=== PATIENT | female | born 1985 | race Caucasian/White ===

== ENCOUNTER 2016-10-19 21:02 | Emergency (ER) | payer MEDICAID, OTHER ==
[2016-10-19] MEDS ORDERED: LACTATED RINGER'S 1000 ML INJ 1,000 ML IV SCH (21:55)
--- NOTE | 2016-10-19 22:15 | PD ---
HPI Chief Complaint Contractions Date Seen: Oct 19, 2016 Time Seen: 22:06 Travel History International Travel<30 Days: No Contact w/Intl Traveler<30Days: No Known Affected Area: No History of Present Illness HPI 31-year-old 3 para 2 at 35 weeks gestation with an EDC of 11/25/16 who reports contractions since just afternoon. She states that they are occurring every 2-10 minutes. She denies leakage of fluid. No unusual vaginal discharge or bleeding. 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 Appearance is incompetent. By first and second trimester bleeding secondary to low-lying placenta. Her most recent ultrasound demonstrated 1/2 cm of distance between the cervix and the placenta by the patient's report. This study was performed at [facility]. She states that she received RhoGAM in the first trimester but did not receive her 28 week RhoGAM. Past Surgical History Narrative Surgical Tonsillectomy Family History Family History: Negative Social History Alcohol Use: No Tobacco Use: No Substance Abuse: No Allergies-Medications (Allergen,Severity, Reaction): Coded Allergies: Phenergan (Verified Allergy, Unknown, 04/10/16) Home Meds No Active Prescriptions or Reported Meds Review of Systems Except as stated in HPI: all other systems reviewed are Neg Physical Exam Narrative GENERAL: Well-nourished, well-developed patient. SKIN: Warm and dry. HEAD: Normocephalic and atraumatic. EYES: No scleral icterus. No injection or drainage. ENT: No nasal drainage noted. Mucous membranes pink. Airway patent. NECK: Supple, trachea midline. No JVD. CARDIOVASCULAR: Regular rate and rhythm without murmurs, gallops, or rubs. RESPIRATORY: Breath sounds equal bilaterally. No accessory muscle use. ABDOMEN/GI: Abdomen soft, non-tender, bowel sounds present, no rebound, no guarding Gravid to [-] weeks size Fundal Height: [-35] GENITOURINARY: External Genitalia: intact and normal in appearance BUS glands: [Negative-] Cervix: [-] Dilatation: [2-] Effacement: [-50] Station: [-2-] Presentation: [-Vertex] Membranes: [intact] Uterine Contractions: [Every 3-] FHT's: Category: [-1] Baseline: [-] Reactive: [-] Variability: [-] Decels: [-] EXTREMITIES: No cyanosis or edema. BACK: Nontender without obvious deformity. No CVA tenderness. NEUROLOGICAL: Awake and alert. Motor and sensory grossly within normal limits. Five out of 5 muscle strength in all muscle groups. Normal speech. Data Data Vital Signs Reviewed: Yes Orders Vital Signs (Adult) .ON ADMISSION (10/19/16 21:55) ^ Labor Status (10/19/16 21:55) Urinalysis - C+S If Indicated (10/19/16 21:55) Type And Screen (10/19/16 21:55) Wet Prep Profile (10/19/16 21:55) Group B Beta Strep Scrn (Gbs) (10/19/16 21:55) Lactated Ringer's 1000 Ml Inj (Lr 1000 M (10/19/16 21:55) MDM Medical Record Reviewed: Yes Narrative Course / MDM Multipara at 35 weeks gestation with contractions and cervical dilation to 2 cm , #2 Rh- and overdue for RhoGAM Plan: IV hydration, wet prep, urinalysis, group B strep, GC and chlamydia screening Type and screen and rhogam if AST is negative Addendum: UA and wet prep are negative Rogam will be administered. Diagnosis Diagnosis: Primary Impression: 35 weeks gestation of Additional Impressions: Rh negative status during in third trimester Irregular contractions Disposition: 01 DISCHARGE HOME Condition: Good Scripts No Active Prescriptions or Reported Meds Marshall Linton MD Oct 19, 2016 22:14
[2016-10-19 22:30] LABS: BACTERIA, URINE RARE /hpf; BLOOD, URINE NEG (NEG); COMMENT (UR) CULT NOT INDICATED; CULTURE IF INDICATED CULT NOT INDICATED; GLUCOSE,URINE NEG (NEG); HYALINE CAST, URINE 1 /lpf (RARE); KETONE, URINE NEG (NEG); MUCUS URINE FEW /lpf (OCC); NITRITE,URINE NEG (NEG); SQUAMOUS EPITHELIAL CELL URINE 2 /hpf (0-5); URINE COLOR YELLOW (YELLW/STRAW)
[2016-11-10] MEDS ORDERED: FERR200T PO (09:04)
[2016-12-24] MEDS ORDERED: CLIN1CAP5 PO (11:11)
[2016-12-30] MEDS ORDERED: ORTH0.35 PO (10:17)
== END 2016-10-20 01:52 | disposition home or self-care (01) ==
LOC: HOBED 21:02
DX: O62.2 Other uterine inertia (principal); O36.0930 Maternal care for other rhesus isoimmunization, third trimester, not applicable or unspecified; Z3A.35 35 weeks gestation of pregnancy
CPT/HCPCS: 59025; 81001; 84112; 85461; 86850; 86900; 86901; 87081; 87210; 90384; 96360; 96361; 96372; J2790

== ENCOUNTER 2016-11-02 10:03 | Emergency (ER) | payer OTHER ==
[2016-11-02 10:56] LABS: BLOOD, URINE NEG (NEG); GLUCOSE,URINE NEG (NEG); KETONE, URINE NEG (NEG); NITRITE,URINE NEG (NEG); PH, URINE 6.5 (5.0-8.5); URINE COLOR LIGHT-YELLOW (YELLW/STRAW)
--- NOTE | 2016-11-02 11:01 | PD ---
HPI Chief Complaint Vaginal spotting Date Seen: Nov 02, 2016 Time Seen: 10:20 Travel History International Travel<30 Days: No Contact w/Intl Traveler<30Days: No Known Affected Area: No History of Present Illness HPI 31-year-old 002 at 37 weeks of gestation, EDC 11/23/16, patient presents to OB ED with complaints of vaginal spotting, patient stated that she was wiping this morning and testosterone blood, she denies cramping, contractions, leakage of fluids and decreased movement. care is with the office of Sarah Merchant, course is unremarkable. Vaginal exam shows no bleeding, no blood is noted on the glove, cervix is 2-3, 50% effaced, -3, posterior. No contractions is seen on the monitor. Para: 2 : 3 Miscarriage: 0 : 0 History Past Medical History Narrative Medical Denies Medical History: Denies Significant Hx Obstetric History Obstetric History Spontaneous vaginal delivery 2 Past Surgical History Narrative Surgical Status post tonsillectomy Family History Narrative Family History Grandfather has prostate cancer, grandmother has breast cancer and cataracts Social History Alcohol Use: No Tobacco Use: Yes (patient smokes 2-3 cigarettes a day) Substance Abuse: No Allergies-Medications (Allergen,Severity, Reaction): Coded Allergies: Phenergan (Verified Allergy, Unknown, 11/02/16) Home Meds No Active Prescriptions or Reported Meds Review of Systems Except as stated in HPI: all other systems reviewed are Neg Genitourinary: Other (vaginal spotting) Physical Exam Narrative GENERAL: Well-nourished, well-developed patient. SKIN: Warm and dry. HEAD: Normocephalic and atraumatic. EYES: No scleral icterus. No injection or drainage. ENT: No nasal drainage noted. Mucous membranes pink. Airway patent. NECK: Supple, trachea midline. No JVD. CARDIOVASCULAR: Regular rate and rhythm without murmurs, gallops, or rubs. RESPIRATORY: Breath sounds equal bilaterally. No accessory muscle use. BREASTS: Bilateral exam showed no masses , no retractions, no nipple discharge. ABDOMEN/GI: Abdomen soft, gravid, non-tender, bowel sounds present, no rebound, no guarding Gravid to 37weeks size Fundal Height: 37 cm GENITOURINARY: External Genitalia: intact and normal in appearance BUS glands: Normal Cervix: 2-3 cm, 50%, -3, posterior Dilatation: 2-3 cm Effacement: 50% Station: -3 Presentation: Cephalic Membranes: Intact Uterine Contractions: None FHT's: Category: one Baseline: 140s Reactive: Yes Variability: Moderate Decels: None EXTREMITIES: No cyanosis or edema. BACK: Nontender without obvious deformity. No CVA tenderness. NEUROLOGICAL: Awake and alert. Motor and sensory grossly within normal limits. Five out of 5 muscle strength in all muscle groups. Normal speech. Data Data Vital Signs Reviewed: Yes Orders Vital Signs (Adult) .ON ADMISSION (11/02/16 10:33) ^ Labor Status (11/02/16 10:33) Urinalysis - C+S If Indicated (11/02/16 10:33) ^ Non Stress Test (11/02/16 10:33) ^ Hydration (11/02/16 10:33) MDM Medical Record Reviewed: Yes Diagnosis Diagnosis: Primary Impression: 37 weeks gestation of Additional Impression: False labor Disposition: 01 DISCHARGE HOME Condition: Stable Scripts No Active Prescriptions or Reported Meds Patient Instructions: Early Labor Signs (ED), General Instructions, Having Your Baby: The Labor Process (GEN) Additional Instructions: Return to labor and delivery if increased symptoms, cramping, contractions, leakage of fluids, vaginal bleeding or decreased movement. Drink plenty of fluids. Monitor kick counts. Keep your office appointment as scheduled. Bhargav Thakkar MD Nov 02, 2016 11:01
[2016-11-02 11:07] LABS: COMMENT (UR) CULT NOT INDICATED; CULTURE IF INDICATED CULT NOT INDICATED
[2016-11-10] MEDS ORDERED: FERR200T PO (09:04)
[2016-12-24] MEDS ORDERED: CLIN1CAP5 PO (11:11)
[2016-12-30] MEDS ORDERED: ORTH0.35 PO (10:17)
== END 2016-11-02 11:17 | disposition home or self-care (01) ==
LOC: HOBED 10:03
DX: O47.1 False labor at or after 37 completed weeks of gestation (principal); Z3A.37 37 weeks gestation of pregnancy; F17.210 Nicotine dependence, cigarettes, uncomplicated
CPT/HCPCS: 59025; 81001

== ENCOUNTER 2016-11-06 00:58 | Inpatient (IN) | payer OTHER ==
[2016-11-06] VITALS (63 sets, daily range): BP systolic 111–138; BP diastolic 63–82; PULSE 75–116; RESP 16–20; TEMP 97.8–98.2; O2SAT 100
--- NOTE | 2016-11-06 01:49 | PD ---
HPI Chief Complaint Vaginal bleeding. Date Seen: Nov 06, 2016 Travel History International Travel<30 Days: No Contact w/Intl Traveler<30Days: No History of Present Illness HPI Patient is a 31 year old at 37-4/7 weeks gestation with MARVIN 11/25/16 by LMP who presents today for vaginal bleeding. She states that she was trying to void when large clots started coming out and she started gushing blood. She soaked through half a pad prior to coming here. She is carrying a Ziploc baggie full of clots that she collected from the toilet bowl. Of note, US on was significant for low-lying placenta and cervical shortening. She endorses contractions but has not been monitoring their frequency. She denies any other vaginal discharge. She is unsure if her membranes ruptured. Positive movement. She denies any abdominal pain, fever, chills, nausea, vomiting, light-headedness, blurry vision, shortness of breath, chest pain, or headache. care was initially with Sarah Merchant and she recently transitioned care to [facility]. History Past Medical History Medical History: Denies Significant Hx Obstetric History Obstetric History s/p x 2 at term Past Surgical History Narrative Surgical Tonsillectomy Family History Narrative Family History Family history of unspecified cancer. Social History Alcohol Use: No Tobacco Use: Yes (2-3 cigarettes/day) Substance Abuse: No Allergies-Medications (Allergen,Severity, Reaction): Coded Allergies: Phenergan (Verified Allergy, Unknown, 11/04/16) Home Meds No Active Prescriptions or Reported Meds Review of Systems Except as stated in HPI: all other systems reviewed are Neg General / Constitutional: No: Fever, Chills Eyes: No: Blurred Vision HENT: No: Headaches, Lightheadedness Cardiovascular: No: Chest Pain or Discomfort Respiratory: No: Short of Breath Gastrointestinal: No: Nausea, Vomiting, Abdominal Pain Genitourinary: Pelvic Pain, Vaginal Bleeding, No: Dysuria, Discharge Musculoskeletal: Edema Skin: No Rash Psychiatric: No: Substance Abuse Physical Exam Narrative GENERAL: Well-nourished, well-developed patient. SKIN: Warm and dry. HEAD: Normocephalic and atraumatic. EYES: No scleral icterus. No injection or drainage. ENT: No nasal drainage noted. Mucous membranes pink. Airway patent. NECK: Supple, trachea midline. No JVD. CARDIOVASCULAR: Regular rate and rhythm without murmurs, gallops, or rubs. RESPIRATORY: Breath sounds equal bilaterally. No accessory muscle use. ABDOMEN/GI: Abdomen soft, mildly tender to palpation in LLQ, bowel sounds present, no rebound, no guarding Gravid to 37 weeks size GENITOURINARY: Speculum Exam: Pooling of dark blood and large clot in vaginal vault. No bright red bleeding at this time. External Genitalia: intact and normal in appearance BUS glands: wnl Cervix: posterior Dilatation: 2 Effacement: 50 Station: -3 Presentation: vertex Membranes: intact Uterine Contractions: irregular FHT's: Category: I Baseline: 130 Reactive: + Variability: moderate Decels: none EXTREMITIES: No cyanosis or edema. BACK: Nontender without obvious deformity. No CVA tenderness. NEUROLOGICAL: Awake and alert. Motor and sensory grossly within normal limits. Normal speech. Data Data Vital Signs Reviewed: Yes MDM Medical Record Reviewed: Yes Narrative Course / MDM Patient is a 31 year old at 37-4/7 weeks gestation. 1. IUP- Category I tracing, reassuring. Continue monitoring FHT/[place]. 2. Acute painless vaginal bleeding- Vitals are stable. Continue to monitor closely. Bedside US significant for vertex presentation, BPD 8.97 consistent with 36-2/7 weeks gestation. Placenta is located left, posterior, and low-lying placenta. Amniotic fluid pockets: 3.12, 7.60, 4.12, 2.79. MARCE 17.63. Flexion, tone, very active, breathing. Category I tracing. 1010 BPP. Plan: Type and Screen, coags, CBC, 2 units PRBC on hold, UDS, UA, CMP, ultrasound. LR @ 125ml/hr. 3. Rh negative- Obtain Kleihauer Betke. Last Rhogam administered 10/19/16. 4. GBS negative. 5. Dispo: Continue to monitor FHT, vitals and clinical symptoms closely. Currently stable, however low threshold for imminent delivery with if status changes. Patient to remain NPO. sdw Dr. Hopkins Addendum: Formal US significant for cervical length of 2.7cm, placenta located 3cm from internal os, internal os closed, no abruption. Scripts No Active Prescriptions or Reported Meds Sarahi Obrien MD R2 Nov 06, 2016 01:49
[2016-11-06] MEDS ORDERED: LACTATED RINGER'S 1000 ML INJ 1,000 ML IV SCH ×2 (01:51→11:51)
[2016-11-06 02:02] LABS: HEMATOCRIT 31.5 % (35.0-46.0); MEAN CELL VOLUME 84.9 FL (80.0-100.0); MEAN CORPUSCULAR HEMOGLOBIN 28.7 PG (27.0-34.0); MEAN CORPUSCULAR HGB CONC 33.8 % (32.0-36.0); PLATELET COUNT 187 TH/MM3 (150-450); RED BLOOD COUNT 3.71 MIL/MM3 (4.00-5.30); REVIEW FLAG FINAL
[2016-11-06] MEDS ORDERED: ACETAMINOPHEN 325 MG TAB PO PRN (02:15)
[2016-11-06] MEDS ORDERED: SODIUM CHLORIDE 0.9% FLUSH 5 ML FLUSH IVF PRN (02:15)
[2016-11-06] MEDS ORDERED: SODIUM CHLOR 0.9% 250 ML INJ 250 ML IV ONE (02:15)
[2016-11-06] MEDS ORDERED: ONDANSETRON HCL 4 MG/2 ML VIAL IV PRN ×2 (02:15→12:00)
[2016-11-06 02:41] LABS: BLOOD, URINE NEG (NEG); GLUCOSE,URINE NEG (NEG); KETONE, URINE NEG (NEG); MUCUS URINE FEW /lpf (OCC); NITRITE,URINE NEG (NEG); PH, URINE 6.5 (5.0-8.5); RENAL EPITHELIAL CELLS <1 /hpf; SQUAMOUS EPITHELIAL CELL URINE <1 /hpf (0-5); URINE COLOR LIGHT-YELLOW (YELLW/STRAW)
[2016-11-06 02:42] LABS: COMMENT (UR) CULT NOT INDICATED; CULTURE IF INDICATED CULT NOT INDICATED
[2016-11-06 02:45] LABS: AMPHETAMINE, URINE NEG (NEG); BARBITURATES, URINE NEG (NEG); COCAINE, URINE NEG (NEG)
[2016-11-06 03:50] LABS: APTT (PATIENT) 27.8 SEC (24.3-30.1); INTERNATIONAL NORMALIZED RATIO 0.9 RATIO; PROTHROMBIN TIME - PATIENT 10.2 SEC (9.8-11.6)
[2016-11-06 04:06] LABS: ALT (GPT) 18 U/L (10-53); ANION GAP 8 MEQ/L (5-15); AST (GOT) 15 U/L (15-37); BLOOD UREA NITROGEN 8 MG/DL (7-18); CHLORIDE 109 MEQ/L (98-107); GLOMERULAR FILTRATION RATE 175 ML/MIN (>89); POTASSIUM 3.9 MEQ/L (3.5-5.1); SODIUM (NA) 142 MEQ/L (136-145)
[2016-11-06 04:09] LABS: ALKALINE PHOSPHATASE 122 U/L (45-117); TOTAL BILIRUBIN ADULT 0.2 MG/DL (0.2-1.0)
[2016-11-06] MEDS ORDERED: SODIUM CHLORIDE 0.9% FLUSH 5 ML FLUSH IVF SCH (09:00)
[2016-11-06] MEDS ORDERED: MULTIVIT/MIN/PREN/FOL AC/IRON PRENATAL TAB PO SCH (09:00)
[2016-11-06] MEDS ORDERED: LACTATED RINGER'S 1000 ML INJ 1,000 ML IV PRN (11:51)
[2016-11-06] MEDS ORDERED: LIDOCAINE HCL 1% 50 ML VIAL I-DERMAL PRN (12:00)
[2016-11-06] MEDS ORDERED: CITRIC ACID-SODIUM CITRATE LIQ 30 ML UDC PO SCH (12:00)
[2016-11-06] MEDS ORDERED: SODIUM CHLORID 0.9% 500 ML INJ 500 ML IV PRN (12:00)
--- NOTE | 2016-11-06 12:04 | HHI.HP ---
History & Physical H&P HPI HPI Chief Complaint Vaginal bleeding. Date Seen: Nov 06, 2016 Travel History International Travel<30 Days: No Contact w/Intl Traveler<30Days: No History of Present Illness HPI Patient is a 31 year old at 37-4/7 weeks gestation with MARVIN 11/25/16 by LMP who presents today for vaginal bleeding. She states that she was trying to void when large clots started coming out and she started gushing blood. She soaked through half a pad prior to coming here. She is carrying a Ziploc baggie full of clots that she collected from the toilet bowl. Of note, US on was significant for low-lying placenta and cervical shortening. She endorses contractions but has not been monitoring their frequency. She denies any other vaginal discharge. She is unsure if her membranes ruptured. Positive movement. She denies any abdominal pain, fever, chills, nausea, vomiting, light-headedness, blurry vision, shortness of breath, chest pain, or headache. care was initially with Sarah Merchant and she recently transitioned care to [facility]. History (Limited) History Past Medical History Medical History: Denies Significant Hx Obstetric History Obstetric History s/p x 2 at term Past Surgical History Narrative Surgical Tonsillectomy Family History Narrative Family History Family history of unspecified cancer. Social History Alcohol Use: No Tobacco Use: Yes (2-3 cigarettes/day) Substance Abuse: No Allergies-Medications Allergies-Medications (Allergen,Severity, Reaction): Coded Allergies: Phenergan (Verified Allergy, Unknown, 11/04/16) Home Meds No Active Prescriptions or Reported Meds ROS Review of Systems Except as stated in HPI: all other systems reviewed are Neg General / Constitutional: No: Fever, Chills Eyes: No: Blurred Vision HENT: No: Headaches, Lightheadedness Cardiovascular: No: Chest Pain or Discomfort Respiratory: No: Short of Breath Gastrointestinal: No: Nausea, Vomiting, Abdominal Pain Genitourinary: Pelvic Pain, Vaginal Bleeding, No: Dysuria, Discharge Musculoskeletal: Edema Skin: No Rash Psychiatric: No: Substance Abuse Physical Exam Physical Exam Narrative GENERAL: Well-nourished, well-developed patient. SKIN: Warm and dry. HEAD: Normocephalic and atraumatic. EYES: No scleral icterus. No injection or drainage. ENT: No nasal drainage noted. Mucous membranes pink. Airway patent. NECK: Supple, trachea midline. No JVD. CARDIOVASCULAR: Regular rate and rhythm without murmurs, gallops, or rubs. RESPIRATORY: Breath sounds equal bilaterally. No accessory muscle use. ABDOMEN/GI: Abdomen soft, mildly tender to palpation in LLQ, bowel sounds present, no rebound, no guarding Gravid to 37 weeks size GENITOURINARY: Speculum Exam: Pooling of dark blood and large clot in vaginal vault. No bright red bleeding at this time. External Genitalia: intact and normal in appearance BUS glands: wnl Cervix: posterior Dilatation: 3 Effacement: 90 Station: -2 Presentation: vertex Membranes: intact Uterine Contractions: q4-6 minutes FHT's: Category: I Baseline: 130 Reactive: + Variability: moderate Decels: none EXTREMITIES: No cyanosis or edema. BACK: Nontender without obvious deformity. No CVA tenderness. NEUROLOGICAL: Awake and alert. Motor and sensory grossly within normal limits. Normal speech. Data Data Data Vital Signs Reviewed: Yes MDM MDM Medical Record Reviewed: Yes Narrative Course / MDM Patient is a 31 year old at 37-4/7 weeks gestation; concern for placental abruption. Re-evaluated at 1200, Now with regular contractions and cervical change. 1. IUP- Category I tracing, reassuring. Continue monitoring FHT/[place]. 2. Acute painless vaginal bleeding- Concern for component of placental abruption. Vitals are stable. Will proceed with labor augmentation with plan for vaginal delivery. Labs reviewed 3. Rh negative- Obtain Fly Prajapati. Rhogam administered 10/19/16 and 11/06/16 4. GBS negative. 5. Dispo: augment labor for expectant vaginal delivery Billy Estrella Dr., MD R2 Nov 06, 2016 12:04
[2016-11-06] MEDS ORDERED: SODIUM CHLOR 0.9% 1000 ML INJ 1,000 ML IV PRN (12:11)
--- NOTE | 2016-11-06 12:58 | PD ---
History of Present Illness Date Seen: Nov 06, 2016 Time Seen: 12:30 History of Present Illness This patient is a 31-year-old white female 30 7/2 weeks with third trimester bleeding. Ultrasound Ruled out placenta previa, she describes a gush of blood earlier this morning she brought into large clots to see that she's been here she's had a small clot when she got up to the bathroom and when I just checked and there was some red blood on the glove. She is cl every 4-5 minutes with some discomfort her cervix was 3/60 and -3 and vertex and at this point this much bleeding noted would describe it as marginal abruption, heart rate tracing is reactive and she is cl as mentioned. Impression is 30 trimester bleeding likely small abruption plan is for labor augmentation to facilitate delivery. This was discussed with patient at length she agrees and is happy with that decision. Bart Starr II, MD Nov 06, 2016 12:58
[2016-11-06] MEDS ORDERED: OXYTOCIN 30 UNITS-500ML PREMIX 500 ML ONE (15:14)
--- NOTE | 2016-11-06 15:33 | PD.LABORPN ---
Subjective Subjective Patient is doing well. Her children have arrived. She would like her two children, friend, and in room during delivery. is still on his way from [place]. Patient evaluated for AROM and IUPC placement. AROM @15:19 performed with blood- tinged fluid. IUPC inserted. Head of was not fully engaged at internal os- increased risk for potential cord prolapse or abruption- none at present. .No complaints at this time. Objective Vital Signs Vital Signs Date Time Temp Pulse Resp B/P Pulse Ox O2 Delivery O2 Flow Rate FiO2 11/06/16 14:24 100 20 120/72 11/06/16 14:20 98.2 Objective Pelvic Exam: Dilatation: [-] 3-4cm Effacement: [-] 50 Station: [-] -3 Presentation: [-] vertex Membranes: AROM @1519 Uterine Contractions: irregular, q2-8 minutes FHT's: Category: [-] 1 Baseline: [-] 145 Reactive: [-] Yes Variability: [-] Moderate Decels: [-] No Assessment/Plan Problem List: (1) Encounter for full-term uncomplicated delivery (2) 37 weeks gestation of (3) Rh negative status during in third trimester (4) Tobacco use during Assessment and Plan 31 year-old with known low-lying placenta 3cm from internal os at 37.4 in active labor. 1. Active Labor, 37 weeks gestation -Pt of Dr. Cleveland, call him when delivery is imminent to deliver -AROM and IUPC @3:19pm with blood tinged fluid, performed without complication. Patient tolerated procedure well -Cat 1 tracing -Expectant vaginal delivery -Epidural desired - Labs -Chlamydia/Gonorrhea neg (2/2) -GBS neg -UDS neg 2. Rh negative status during in 3rd trimester -Antibody D screen neg -Received RhoGAM (10/20, 2/2) 3. Tobacco Abuse during -"Less than pre-" SDW: Dr. Starr, Demetria Corea MD R1 Nov 06, 2016 15:33
[2016-11-06] MEDS ORDERED: OXYTOCIN 30 UNITS-500ML PREMIX 500 ML IV SCH (17:15)
[2016-11-06] MEDS ORDERED: fentaNYL 2MCG-BUPIV 0.125% INJ 100 ML ONE (19:42)
[2016-11-06] MEDS ORDERED: fentaNYL 2MCG-BUPIV 0.125% INJ 100 ML EPIDURAL SCH (21:00)
[2016-11-06] MEDS ORDERED: NO SYSTEM NARCOTICS XX PRN (21:00)
[2016-11-06] MEDS ORDERED: ePHEDrine/NS 50 MG/5 ML SYR IV PRN (21:00)
[2016-11-06] MEDS ORDERED: DO NOT ADMINISTER ANTICOAGULANTS XX PRN (21:00)
[2016-11-07] VITALS (10 sets, daily range): BP systolic 120–125; BP diastolic 66–73; PULSE 18–93; RESP 18; TEMP 98.5–99; O2SAT 98
[2016-11-07] MEDS ORDERED: MISOPROSTOL 200 MCG TAB ONE (00:04)
--- NOTE | 2016-11-07 00:12 | PD.OB.DELI ---
Delivery Date: Nov 07, 2016 Anesthesia: Epidural Episiotomy: None Vaginal Delivery: Normal Presentation: Occiput anterior Nuchal Cord: None Delayed cord clamping (45 sec): No : Male One Minute : 8 Five Minute : 9 Weight: 3240 g Infant Care: Suctioned, Responded to stimulation Placenta: Spontaneous delivery Laceration: No lacerations Additional Information Delivered by Dr. Gonzalez Supervised by Dr. Starr & Chucho Gipson MD Nov 07, 2016 00:12
--- NOTE | 2016-11-07 00:26 | PD.LABORPN ---
Subjective Subjective OB Attending note Delivery of viable M over intact perineum , done by [facility] Med resident supervised by me,, all went well, Wt 3240 gm -8/9 , placenta out intact spont - sent to path due to abruption history no lacerations, EBL 200 cc , mother and baby doing well Objective Objective Assessment/Plan Problem List: (1) Encounter for full-term uncomplicated delivery (2) 37 weeks gestation of (3) Rh negative status during in third trimester (4) Tobacco use during Bart Starr II, MD Nov 07, 2016 00:26
[2016-11-07] MEDS ORDERED: ONDANSETRON ODT 4 MG TAB PO PRN (00:30)
[2016-11-07] MEDS ORDERED: ALUMINUM/MAGNESIUM/SIMETH 30 ML CUP PO PRN (00:30)
[2016-11-07] MEDS ORDERED: SODIUM CHLORIDE 0.9% FLUSH 5 ML FLUSH IV PRN (00:30)
[2016-11-07] MEDS ORDERED: ACETAMINOPHEN 325 MG TAB PO PRN (00:30)
[2016-11-07] MEDS ORDERED: DOCUSATE SODIUM 50 MG/SENNA 8.6 MG TAB PO PRN (00:30)
[2016-11-07] MEDS ORDERED: WITCH HAZEL 50%/GLYCERIN 12.5% 40 PAD JAR TOPICAL PRN (00:30)
[2016-11-07] MEDS ORDERED: ZOLPIDEM TARTRATE 5 MG TAB PO PRN (00:30)
[2016-11-07] MEDS ORDERED: BENZOCAINE 20% TOPICAL SPRAY 60 ML CAN TOPICAL PRN (00:30)
[2016-11-07] MEDS: IBUPROFEN 600 MG TAB PO PRN ×4 (03:16→21:24)
[2016-11-07 05:52] LABS: BASOPHIL % 0.2 % (0.0-2.0); EOSINOPHIL % 0.2 % (0.0-4.0); HEMATOCRIT 26.2 % (35.0-46.0); HEMO FLAGS DIFF FINAL; LYMPH % 9.6 % (9.0-44.0); MEAN CELL VOLUME 84.4 FL (80.0-100.0); MEAN CORPUSCULAR HEMOGLOBIN 28.2 PG (27.0-34.0); MEAN CORPUSCULAR HGB CONC 33.4 % (32.0-36.0); MONO % 5.5 % (0.0-8.0); NEUT % 84.5 % (16.0-70.0); PLATELET COUNT 190 TH/MM3 (150-450); RED CELL DISTRIBUTION WIDTH 13.3 % (11.6-17.2); WHITE BLOOD COUNT 21.3 TH/MM3 (4.0-11.0)
--- NOTE | 2016-11-07 08:27 | HHI.OB ---
Subjective Post Day: 1 Remarks Patient doing well . She is ambulating and voiding without difficulty. She is having abdominal pain which is not totally relieved with the Motrin. Vaginal bleeding roughly the amount of menstrual period. She is breast-feeding successfully. No chest pain, shortness of breath. Objective Vitals/I&O Vital Signs Date Time Temp Pulse Resp B/P Pulse Ox O2 Delivery O2 Flow Rate FiO2 11/07/16 02:30 89 18 120/73 11/07/16 02:30 99.0 11/07/16 01:40 98.9 11/07/16 01:40 18 11/07/16 01:10 18 11/07/16 00:55 18 11/07/16 00:36 18 11/07/16 00:15 18 11/07/16 00:00 18 11/06/16 23:45 116 100 11/06/16 23:40 110 100 11/06/16 23:35 92 100 11/06/16 23:30 108 100 11/06/16 23:20 112 11/06/16 23:15 132/68 11/06/16 23:15 75 11/06/16 23:10 88 11/06/16 23:05 92 11/06/16 23:00 85 11/06/16 23:00 126/73 11/06/16 22:50 84 11/06/16 22:45 135/78 11/06/16 22:45 18 11/06/16 22:45 104 11/06/16 22:40 89 11/06/16 22:35 100 11/06/16 22:35 97 11/06/16 22:30 18 11/06/16 22:30 84 11/06/16 22:30 82 122/71 11/06/16 22:30 100 11/06/16 22:25 100 11/06/16 22:25 82 11/06/16 22:20 100 11/06/16 22:20 82 11/06/16 22:15 91 11/06/16 22:15 100 11/06/16 22:15 135/71 11/06/16 22:15 18 11/06/16 22:10 80 11/06/16 22:10 100 11/06/16 22:05 86 11/06/16 22:05 100 11/06/16 22:00 93 11/06/16 22:00 100 11/06/16 22:00 18 127/77 11/06/16 21:55 88 11/06/16 21:50 87 11/06/16 21:45 92 128/75 11/06/16 21:45 80 11/06/16 21:40 77 11/06/16 21:35 93 11/06/16 21:30 18 11/06/16 21:30 90 11/06/16 21:30 85 123/74 11/06/16 21:30 97.8 11/06/16 21:25 85 11/06/16 21:20 96 11/06/16 21:15 89 18 122/73 11/06/16 21:15 89 11/06/16 21:10 90 11/06/16 21:05 88 11/06/16 21:00 91 11/06/16 21:00 85 118/65 11/06/16 21:00 18 11/06/16 20:55 94 11/06/16 20:50 93 122/69 11/06/16 20:50 82 11/06/16 20:45 89 11/06/16 20:45 18 11/06/16 20:45 89 112/64 11/06/16 20:40 85 111/66 11/06/16 20:40 96 11/06/16 20:35 86 119/63 11/06/16 20:35 90 11/06/16 20:30 89 113/67 11/06/16 20:30 88 11/06/16 20:25 89 123/69 11/06/16 20:25 82 11/06/16 20:24 18 11/06/16 20:20 81 11/06/16 20:20 82 127/66 11/06/16 20:15 93 130/77 11/06/16 20:15 91 11/06/16 20:10 96 11/06/16 20:05 96 11/06/16 20:00 89 11/06/16 19:59 18 11/06/16 19:55 94 11/06/16 19:28 98.0 11/06/16 19:27 18 11/06/16 19:22 82 133/81 11/06/16 19:00 18 2/2/17 18:26 79 138/82 11/06/16 18:26 16 11/06/16 18:04 18 11/06/16 18:03 98.1 11/06/16 17:44 85 114/69 11/06/16 17:16 85 18 118/73 11/06/16 16:30 20 11/06/16 16:25 84 114/73 11/06/16 14:24 100 20 120/72 11/06/16 14:20 98.2 11/06/16 12:56 20 11/06/16 12:56 91 124/76 Objective Remarks GENERAL: Well-nourished, well-developed patient. CARDIOVASCULAR: Regular rate and rhythm without murmurs, gallops, or rubs. RESPIRATORY: Breath sounds equal bilaterally. No accessory muscle use. ABDOMEN/GI: Abdomen soft, non-tender. Fundus: Firm, non-tender at umbilicus. GENITOURINARY: Light to moderate bleeding. EXTREMITIES: No cyanosis or edema, non-tender, without signs of DVT. Medications and IVs Current Medications Medications (Trade) Dose Ordered Sig/Sabina Route Start Time Stop Time Status Last Admin Miscellaneous Information No systemic narcotics to be given except... UNSCH PRN XX 11/06/16 21:00 11/07/16 20:59 Miscellaneous Information DO NOT ADMINISTER ANY ANTICOAGUL... UNSCH PRN XX 11/06/16 21:00 11/07/16 20:59 (ePHEDrine/NS 50 MG/5 ML SYR) 10 mg UNSCH PRN IV 11/06/16 21:00 11/07/16 20:59 (NS Flush) 2 ml BID IV 11/07/16 09:00 (NS Flush) 2 ml UNSCH PRN IV 11/07/16 00:30 (Tylenol) 650 mg Q4H PRN PO 11/07/16 00:30 (Motrin) 600 mg Q6H PRN PO 11/07/16 00:30 11/07/16 03:16 (Americaine 20% Top Spr) 1 spray Q4H PRN TOPICAL 11/07/16 00:30 (Tucks Pads) 1 applic QID PRN TOPICAL 11/07/16 00:30 (Nida-Colace) 2 tab Q12H PRN PO 11/07/16 00:30 (Ambien) 5 mg HS PRN PO 11/07/16 00:30 (M-M-R Ii Inj) 0.5 ml ONCE ONCE SQ 11/07/16 16:00 11/07/16 16:01 (Boostrix Inj) 0.5 ml ONCE ONCE IM 11/07/16 16:00 11/07/16 16:01 (Mag-Al Plus Susp Liq) 15 ml Q8H PRN PO 11/07/16 00:30 (Zofran Odt) 4 mg Q6H PRN PO 11/07/16 00:30 Assessment/Plan Problem List: (1) Vaginal delivery Assessment and Plan 31 year old PPD1 1. Care - AFVSS since delivery - Motrin prn pain - Encouraged OOB, as tolerated - Pelvic rest x 6 weeks - Will f/u with OB provider in 4-6 weeks - Anticipate d/c tomorrow Discharge Planning Likely tomorrow Billy Blanca MD R2 Nov 07, 2016 08:27
[2016-11-07] MEDS: oxyCODONE/ACETAMINOPHEN 5 MG/325 MG TAB PO PRN ×3 (08:51→21:25)
[2016-11-07] MEDS ORDERED: SODIUM CHLORIDE 0.9% FLUSH 5 ML FLUSH IV SCH (09:00)
[2016-11-07] MEDS ORDERED: MEASLES, MUMPS, RUBELLA VACCINE 0.5 ML VIAL SQ ONE (16:00)
[2016-11-07] MEDS ORDERED: DIPHTH/TETANUS/ACEL PERTUSSIS (BOOSTER) 0.5 ML VIAL/PFS IM ONE (16:00)
[2016-11-08 08:12] VITALS: BP 124/69; PULSE 88; RESP 18; TEMP 98.3
--- NOTE | 2016-11-08 08:51 | HHI.OB ---
Subjective Post Day: 2 Remarks 31 year old female s/p at 37/4 wks gestation, PPD 2. AFVSS. Patient reports she is feeling well. Bleeding is decreasing and pain is well- controlled. She is breast and formula feeding and bonding well with baby. Ambulating without difficulties. She is tolerating a diet without nausea or vomiting. She has had a bowel movement. Denies chest pain, dysuria, shortness of breath, or calf pain. (Dora Chirinos MD R2) Objective Vitals/I&O Vital Signs Date Time Temp Pulse Resp B/P Pulse Ox O2 Delivery O2 Flow Rate FiO2 11/08/16 08:12 98.3 88 18 124/69 11/07/16 20:30 120/72 11/07/16 16:00 18 18 11/07/16 15:23 18 Objective Remarks GENERAL: Well-nourished, well-developed patient. CARDIOVASCULAR: Regular rate and rhythm without murmurs, gallops, or rubs. RESPIRATORY: Breath sounds equal bilaterally. No accessory muscle use. ABDOMEN/GI: Abdomen soft, non-tender. Fundus: Firm, non-tender at umbilicus. GENITOURINARY: Light to moderate bleeding. EXTREMITIES: No cyanosis or edema, non-tender, without signs of DVT. Medications and IVs Current Medications Medications (Trade) Dose Ordered Sig/Sabina Route Start Time Stop Time Status Last Admin (NS Flush) 2 ml BID IV 11/07/16 09:00 (NS Flush) 2 ml UNSCH PRN IV 11/07/16 00:30 (Tylenol) 650 mg Q4H PRN PO 11/07/16 00:30 (Motrin) 600 mg Q6H PRN PO 11/07/16 00:30 11/07/16 21:24 (Americaine 20% Top Spr) 1 spray Q4H PRN TOPICAL 11/07/16 00:30 (Tucks Pads) 1 applic QID PRN TOPICAL 11/07/16 00:30 (Nida-Colace) 2 tab Q12H PRN PO 11/07/16 00:30 (Ambien) 5 mg HS PRN PO 11/07/16 00:30 (Mag-Al Plus Susp Liq) 15 ml Q8H PRN PO 11/07/16 00:30 (Zofran Odt) 4 mg Q6H PRN PO 11/07/16 00:30 (Percocet 5-325 Mg) 1 tab Q4H PRN PO 11/07/16 08:30 11/07/16 21:25 (Dora Chirinos MD R2) Assessment/Plan Problem List: (1) Vaginal delivery Assessment and Plan 31 year old PPD2 1. Care - AFVSS since delivery - Motrin prn pain - Encouraged OOB, as tolerated - Pelvic rest x 6 weeks. control options discussed. Will make decision as an outpatient. - Will f/u with OB provider in 4-6 weeks - Anticipate d/c today wdw Dr. Linton Discharge Planning today (Dora Chirinos MD R2) Attending Attestation Patient seen and evaluated with resident under direct supervision, agree with assessment and plan. (Marshall Linton MD) Dora Chirinos MD R2 Nov 08, 2016 08:51 Marshall Linton MD Nov 08, 2016 09:07
[2016-11-08] MEDS ORDERED: IBUP-232 PO (08:52)
--- NOTE | 2016-11-08 08:58 | HHI.DCPOC ---
Discharge Care Plan Diagnosis: (1) Vaginal delivery Report Symptoms to Your Doctor -Temperate above 100.5 degrees -Redness, of incision or excessive or foul smelling drainage -Unusual pain or calf pain -Increased vaginal bleeding -Painful or difficulty urinating -Feelings of extreme sadness or anxiety after 2 weeks Goals to Promote Your Health * To prevent worsening of your condition and complications * To maintain your health at the optimal level Directions to Meet Your Goals Take your medications as prescribed Follow your dietary instruction Follow activity as directed Ensure plenty of rest for recovery Drink fluids for hydration Keep your appointments as scheduled Take your immunizations and boosters as scheduled If your symptoms worsen call your PCP, if no PCP go to Urgent Care Center or Emergency Room Smoking is Dangerous to Your Health. Avoid second hand smoke Call the 24-hour crisis hotline for domestic abuse at Dora Chirinos MD R2 Nov 08, 2016 08:58
[2016-11-10] MEDS ORDERED: FERR200T PO (09:04)
[2016-11-13 08:28] LABS: BATH SALTS (MDPV) UR NEG (NEG); ECSTASY (MDMA) UR NEG (NEG); HEROIN (6-ACETYLMORPHINE) UR NEG (NEG); K2 SPICE UR NEG (NEG); OBMETHADONE UR NEG (NEG); OXYCODONE (PERCODAN) NEG (NEG); PHENCYCLIDINE URINE NEG (NEG)
[2016-12-24] MEDS ORDERED: CLIN1CAP5 PO (11:11)
[2016-12-30] MEDS ORDERED: ORTH0.35 PO (10:17)
== END 2016-11-08 11:02 | disposition home or self-care (01) | DRG 774 ==
LOC: HOBED 00:58 → OBSVTOIN 02:21 → H2EA 02:21 → H1EA 11-07 02:05
PROVIDERS: ADMIT Obstetrics & Gynecology; ATTEND Obstetrics & Gynecology
PROC: 10907ZC Drainage of Amniotic Fluid, Therapeutic from Products of Conception, Via Natural or Artificial Opening (ICD-10-PCS; 2016-11-06)
PROC: 10H07YZ Insertion of Other Device into Products of Conception, Via Natural or Artificial Opening (ICD-10-PCS; 2016-11-06)
PROC: 3E0S3CZ (ICD-10-PCS; 2016-11-06)
PROC: 00HU33Z Insertion of Infusion Device into Spinal Canal, Percutaneous Approach (ICD-10-PCS; 2016-11-06)
PROC: 10E0XZZ Delivery of Products of Conception, External Approach (ICD-10-PCS; principal; 2016-11-07)
DX: O67.8 Other intrapartum hemorrhage (principal); O44.40 Low lying placenta NOS or without hemorrhage, unspecified trimester; F17.210 Nicotine dependence, cigarettes, uncomplicated; O99.333 Smoking (tobacco) complicating pregnancy, third trimester; O26.893 Other specified pregnancy related conditions, third trimester; Z67.91 Unspecified blood type, Rh negative; Z37.0 Single live birth; Z3A.37 37 weeks gestation of pregnancy
CPT/HCPCS: 59025; 76816; 76817; 80053; 80307; 81001; 83030; 85025; 85027; 85461; 85610; 85730; 86077; 86850; 86870; 86900; 86901; 86920; 88307; 90384; 90715; G0481; J2590; J2790; J3010; J7120

== ENCOUNTER 2017-12-03 11:48 | Emergency (ER) | payer MEDICAID, OTHER ==
[~2017-12-03] VITALS: Ht 160 cm; Wt 79.8 kg
[~2017-12-03 11:48] MED LIST: CLIN150C14 PO; ORTH0.35 PO
[2017-12-03 11:58] VITALS: BP 115/59; PULSE 82; RESP 16; TEMP 98.8; O2SAT 98
--- NOTE | 2017-12-03 12:17 | PD ---
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 She has been having bleeding between periods. Been going on for about 2 months. She gets quite severe lower abdominal pain which last for up to 2 hours. She gets the pain about every 2 days. She has not had fever or chills. She is 3 para 3. She says she uses about 1 pad per day. She says the first time she had the pain was in the beginning of November. On that day the pain was severe and she was unable to move because of the pain lasted for several hours. Since then she has had several bouts of severe pain. She had an episode early this morning. She is not having severe pain right now PFSH Past Medical History Anxiety: Yes Depression: Yes Tetanus Vaccination: < 5 Years Influenza Vaccination: No ?: Not LMP: 09/24/17 on control : 3 Para: 3 Miscarriage: 0 : 0 Past Surgical History Tonsillectomy: Yes Social History Alcohol Use: Yes (RARE) Tobacco Use: Yes (1/2 PPD) Substance Use: No Allergies-Medications (Allergen,Severity, Reaction): Coded Allergies: promethazine (Unverified Allergy, Unknown, 12/03/17) Reported Meds & Prescriptions Reported Meds & Active Scripts Active Ortho Micronor-35 (Norethindrone) 0.35 Mg Tab 1 Tab PO DAILY Reported Clindamycin (Clindamycin HCl) 150 Mg Cap 150 Mg PO Q6H Review of Systems General / Constitutional: No: Fever, Chills Eyes: No: Diploplia, Blurred Vision HENT: No: Headaches, Vertigo Cardiovascular: No: Chest Pain or Discomfort, Palpitations Respiratory: No: Cough, Shortness of Breath Gastrointestinal: No: Nausea, Vomiting Genitourinary: Positive: Vaginal Bleeding, No: Urgency, Frequency Musculoskeletal: No: Myalgias, Arthralgias Skin: No Rash Hematologic/Lymphatic: No: Easy Bruising Physical Exam Narrative GENERAL well-developed female SKIN: Focused skin assessment warm/dry. HEAD: Atraumatic. Normocephalic. EYES: Pupils equal and round. No scleral icterus. No injection or drainage. ENT: No nasal bleeding or discharge. Mucous membranes pink and moist. NECK: Trachea midline. No JVD. CARDIOVASCULAR: Regular rate and rhythm. No murmur appreciated. RESPIRATORY: No accessory muscle use. Clear to auscultation. Breath sounds equal bilaterally. GASTROINTESTINAL: Abdomen soft, non-tender, nondistended. Hepatic and splenic margins not palpable. Pelvic: There is no vaginal discharge. There is minimal bleeding. There is some pain with movement of the cervix. The uterus is somewhat tender but not grossly enlarged. I do not appreciate any adnexal masses MUSCULOSKELETAL: No obvious deformities. No clubbing. No cyanosis. No edema. NEUROLOGICAL: Awake and alert. No obvious cranial nerve deficits. Motor grossly within normal limits. Normal speech. PSYCHIATRIC: Appropriate mood and affect; insight and judgment normal. Data Data Last Documented VS Vital Signs Date Time Temp Pulse Resp B/P (MAP) Pulse Ox O2 Delivery O2 Flow Rate FiO2 12/03/17 14:24 74 18 115/68 (84) 99 Room Air 12/03/17 11:58 98.8 Orders Orders Complete Blood Count With Diff (12/03/17 12:14) Basic Metabolic Panel (Bmp) (12/03/17 12:14) Gc And Chlamydia Pcr (12/03/17 12:14) Ua Includes Microscopic (12/03/17 12:14) Potassium Chloride (Kcl) (12/03/17 13:45) Us Pelvis Comp W Transvaginal (12/03/17 12:43) Mri Pelvis W&W/O Contrast (12/03/17 ) Sodium Chlor 0.9% 1000 Ml Inj (Ns 1000 M (12/03/17 15:00) Labs Laboratory Tests Test 12/03/17 12:30 12/03/17 12:43 Urine Collection Type CLEAN CATCH Urine Color YELLOW Urine Turbidity CLEAR Urine pH 5.0 Urine Specific [place] 1.025 Urine Protein NEG mg/dL Urine Glucose (UA) NEG mg/dL Urine Ketones TRACE mg/dL Urine Occult Blood TRACE Urine Nitrite NEG Urine Bilirubin NEG Urine Urobilinogen 0.2 MG/DL Urine Leukocyte Esterase NEG Urine WBC 0-2 /hpf Urine Squamous Epithelial Cells 0-5 /hpf Urine Mucus FEW /lpf Urine Collection Time 12:30 White Blood Count 11.4 TH/MM3 Red Blood Count 4.35 MIL/MM3 Hemoglobin 12.6 GM/DL Hematocrit 36.7 % Mean Corpuscular Volume 84.4 FL Mean Corpuscular Hemoglobin 28.8 PG Mean Corpuscular Hemoglobin Concent 34.2 % Red Cell Distribution Width 12.5 % Platelet Count 255 TH/MM3 Mean Platelet Volume 8.6 FL Neutrophils (%) (Auto) 75.5 % Lymphocytes (%) (Auto) 17.3 % Monocytes (%) (Auto) 5.9 % Eosinophils (%) (Auto) 0.8 % Basophils (%) (Auto) 0.5 % Neutrophils # (Auto) 8.5 TH/MM3 Lymphocytes # (Auto) 2.0 TH/MM3 Monocytes # (Auto) 0.7 TH/MM3 Eosinophils # (Auto) 0.1 TH/MM3 Basophils # (Auto) 0.1 TH/MM3 CBC Comment DIFF FINAL Differential Comment Blood Urea Nitrogen 11 MG/DL Creatinine 0.50 MG/DL Random Glucose 77 MG/DL Calcium Level 8.4 MG/DL Sodium Level 139 MEQ/L Potassium Level 3.3 MEQ/L Chloride Level 108 MEQ/L Carbon Dioxide Level 24.9 MEQ/L Anion Gap 6 MEQ/L Estimat Glomerular Filtration Rate 142 ML/MIN MDM Medical Decision Making Medical Screen Exam Complete: Yes Emergency Medical Condition: Yes Medical Record Reviewed: Yes Differential Diagnosis Differential includes cervicitis, pelvic inflammatory disease, ovarian cyst, Narrative Course Hemoglobin is 12.6 the white count of 11.2. An ultrasound was ordered which shows a prominent area of mixed echogenicity in the right adnexa with at least one complicated cystic area. This could be normal ovary with surrounding hemorrhage or conceivably missed torsion. Pelvic MRI with contrast could be helpful to better evaluate his right adnexal mass. There is complex fluid in the cul-de-sac. I have ordered the MRI Rob Miller MD Dec 03, 2017 12:17
[2017-12-03 12:52] LABS: BILIRUBIN, URINE NEG (NEG); BLOOD, URINE TRACE (NEG); GLUCOSE,URINE NEG (NEG); KETONE, URINE TRACE mg/dL (NEG); NITRITE,URINE NEG (NEG); URINE COLOR YELLOW (YELLW/STRAW); URINE LEUKOCYTE ESTERASE NEG (NEG)
[2017-12-03 12:57] LABS: MUCUS URINE FEW /lpf (OCC); SQUAMOUS EPITHELIAL CELL URINE 0-5 /hpf (0-5); WBC, URINE 0-2 /hpf (0-5)
[2017-12-03 13:01] LABS: AUTOMATED NEUTROPHIL # 8.5 TH/MM3 (1.8-7.7); BASOPHIL # 0.1 TH/MM3 (0-0.2); BASOPHIL % 0.5 % (0.0-2.0); EOSINOPHIL # 0.1 TH/MM3 (0-0.4); EOSINOPHIL % 0.8 % (0.0-4.0); HEMATOCRIT 36.7 % (35.0-46.0); HEMOGLOBIN 12.6 GM/DL (11.6-15.3); LYMPH % 17.3 % (9.0-44.0); MEAN CELL VOLUME 84.4 FL (80.0-100.0); MEAN CORPUSCULAR HEMOGLOBIN 28.8 PG (27.0-34.0); MEAN CORPUSCULAR HGB CONC 34.2 % (32.0-36.0); MEAN PLATELET VOLUME 8.6 FL (7.0-11.0); MONO % 5.9 % (0.0-8.0); MONOCYTE # 0.7 TH/MM3 (0-0.9); NEUT % 75.5 % (16.0-70.0); PLATELET COUNT 255 TH/MM3 (150-450); RED BLOOD COUNT 4.35 MIL/MM3 (4.00-5.30); RED CELL DISTRIBUTION WIDTH 12.5 % (11.6-17.2); WHITE BLOOD COUNT 11.4 TH/MM3 (4.0-11.0)
[2017-12-03 13:11] LABS: BICARBONATE 24.9 MEQ/L (21.0-32.0); CALCIUM 8.4 MG/DL (8.5-10.1)
[2017-12-03 13:15] LABS: CREATININE 0.5 MG/DL (0.50-1.00)
[2017-12-03 13:45] VITALS: BP 117/65; PULSE 75; RESP 16; O2SAT 98
[2017-12-03] MEDS ORDERED: POTASSIUM CHLORIDE 20 MEQ CONTROLLED RELEASE TAB PO ONE (13:45)
[2017-12-03 14:24] VITALS: BP 115/68; PULSE 74; RESP 18; O2SAT 99
--- NOTE | 2017-12-03 14:36 | RADRPT ---
EXAM DATE/TIME: 12/03/2017 13:40 [facility] COMPARISON: No previous studies available for comparison. INDICATIONS : Pelvic pain and vaginal bleeding. MEDICAL HISTORY : Pelvic pain and vaginal bleeding. SURGICAL HISTORY : Tonsillectomy. ENCOUNTER: Initial ACUITY: 2 months PAIN SCORE: 4/10 LOCATION: Right pelvis MEASUREMENTS: UTERUS: 8.6 x 4.6 x 4.6 cm ENDOMETRIAL STRIPE: 12 mm RIGHT OVARY: 8.7 x 5.9 x 8.4 cm LEFT OVARY: 3.1 x 1.8 x 2.5 cm FINDINGS: UTERUS: The myometrium has homogeneous echotexture without mass. RIGHT OVARY: Is a large complex area within the right adnexa measuring 8.7 x 5.9 x 8.4 cm. There is one cystic area measuring 3.4 x 2.7 cm across could be functional cysts. Unusual appearance for a right ovary LEFT OVARY: Ovary contains no mass or significant cystic lesion. MISCELLANEOUS: Complex free fluid primarily in the cul-de-sac. CONCLUSION: Per prominent area of mixed echogenicity in the right adnexa with at least one compli cated cystic area. Could be normal ovary with surrounding hemorrhage. Conceivably missed torsion coul d be within the differential with the size of this area. Pelvic MRI with contrast might be helpful to better evaluate the location and appearance of this right adnexal mass . Complex fluid in the cul-d e-sac. Marshall Yanez MD on December 03, 2017 at 14:33 Board Certified Radiologist. This report was verified electronically.
[2017-12-03] MEDS ORDERED: SODIUM CHLOR 0.9% 1000 ML INJ 1,000 ML IV SCH (15:00)
[2017-12-03] MEDS ORDERED: GADODIAMIDE PF 287 MG/ML 20 ML VIAL (for RAD MRI) IVCONTRAST ONE (16:47)
--- NOTE | 2017-12-03 17:04 | RADRPT ---
EXAM DATE/TIME: 12/03/2017 16:12 [facility] COMPARISON: US PELVIS COMP W/TRANSVAGINAL, December 03, 2017, 13:40. INDICATIONS : Mass. Adnexal mass. Pain and bleeding for two months. CONTRAST: 15 cc Omniscan (gadodiamide) IV MEDICAL HISTORY : None. SURGICAL HISTORY : Tonsillectomy. ENCOUNTER: Subsequent ACUITY: 2 months PAIN SCORE: 6/10 LOCATION: Abdomen. TECHNIQUE: Multiplanar, multisequence magnetic resonance imaging of the pelvis was performed. FINDINGS: REPRODUCTIVE: In the right adnexa there is a large complicated mass measuring 4.9 x 10.1 x 6.7 cm. I cannot identif y a normal right ovary. The mass has multiple loculations and multiple cystic areas without a defined tubular structure. The mass shows very little peripheral enhancement. The appendix is directly anter ior to the mass. The differential include a enlarged right ovary with multiple hemorrhagic and benign functional cysts, a missed torsion or less likely tubo-ovarian abscess or appendiceal abscess. The p atient is not appreciably tender and white count is normal making obvious abscess much less likely. The left ovary has a normal appearance measuring 2.0 cm with a few tiny functional cysts and a s mall amount of surrounding free fluid BLADDER: No wall thickening or mass. RETROPERITONEUM: There is no lymphadenopathy. Vascular structures are within normal limits. BOWEL/MESENTERY: Visualized small and large bowel demonstrates no acute abnormality. There is no free fluid. INGUINAL: No lymphadenopathy or hernia. MUSCULOSKELETAL: Bone marrow signal is within normal limits. CONCLUSION: Complex mass in the right adnexa without identifiable right ovary. Differential includes an enlarged left ovary with multiple complicated functional cysts, abscess of some type or conceivably missed ova pati torsion. I spoke with the the ER physician directly on this differential. Marshall Yanez MD on December 03, 2017 at 16:58 Board Certified Radiologist. This report was verified electronically.
[2017-12-03 17:20] VITALS: BP 108/68; PULSE 70; RESP 16; O2SAT 98
[2017-12-03] MEDS ORDERED: PERC5TAB12 PO (17:47)
--- NOTE | 2017-12-03 17:47 | PD ---
Physical Exam Date Seen by Provider: Dec 03, 2017 Time Seen by Provider: 16:00 Narrative Patient initially seen and evaluated by Dr. Schaffer, please see Dr. Schaffer's note for further details. She is here for several months history of lower abdominal pains, worsening her last few hours. Ultrasound shows a right adnexal mass of uncertain etiology, MRI ordered for further evaluation. Laboratory Tests Test 12/03/17 12:30 12/03/17 12:43 Urine Ketones TRACE mg/dL (NEG) Urine Mucus FEW /lpf (OCC) White Blood Count 11.4 TH/MM3 (4.0-11.0) Neutrophils (%) (Auto) 75.5 % (16.0-70.0) Neutrophils # (Auto) 8.5 TH/MM3 (1.8-7.7) Calcium Level 8.4 MG/DL (8.5-10.1) Potassium Level 3.3 MEQ/L (3.5-5.1) Chloride Level 108 MEQ/L (98-107) Last 24 hours Impressions Pelvis Ultrasound 12/03/17 1243 Signed Impressions: Service Date/Time: December 13:40 - CONCLUSION: Per prominent area of mixed echogenicity in the right adnexa with at least one complicated cystic area. Could be normal ovary with surrounding hemorrhage. Conceivably missed torsion could be within the differential with the size of this area. Pelvic MRI with contrast might be helpful to better evaluate the location and appearance of this right adnexal mass . Complex fluid in the cul-de-sac. Marshall Yanez MD Pelvis MRI 12/03/17 0000 Signed Impressions: Service Date/Time: December 16:12 - CONCLUSION: Complex mass in the right adnexa without identifiable right ovary. Differential includes an enlarged left ovary with multiple complicated functional cysts, abscess of some type or conceivably missed ovarian torsion. I spoke with the the ER physician directly on this differential. Marshall Yanez MD I have initially discussed the case with radiologist and the etiology of the mass on MRI is of uncertain etiology although is much more likely to be gynecological rather than GI. The appendix is overlying the area but patient does not have significant leukocytosis and does not have a acute abdomen on exam. Her abdomen is fairly non-tender except in the right pelvic area. Case was then discussed with Dr. Gay, who is covering for Dr. Gomez, and she states that at this point considering that the symptoms have been going on for several months, and the patient does not have an acute abdomen, she would recommend that the patient follow-up in her clinic tomorrow. Return for any worsening in pain, fevers, and as needed. The plan has been discussed with the patient and findings have been discussed extensively with the patient and she states understanding. Data Data Last Documented VS Vital Signs Date Time Temp Pulse Resp B/P (MAP) Pulse Ox O2 Delivery O2 Flow Rate FiO2 12/03/17 14:24 74 18 115/68 (84) 99 Room Air 12/03/17 11:58 98.8 Orders Orders Complete Blood Count With Diff (12/03/17 12:14) Basic Metabolic Panel (Bmp) (12/03/17 12:14) Gc And Chlamydia Pcr (12/03/17 12:14) Ua Includes Microscopic (12/03/17 12:14) Potassium Chloride (Kcl) (12/03/17 13:45) Us Pelvis Comp W Transvaginal (12/03/17 12:43) Mri Pelvis W&W/O Contrast (12/03/17 ) Sodium Chlor 0.9% 1000 Ml Inj (Ns 1000 M (12/03/17 15:00) Gadodiamide Pf Inj (Omniscan Pf Inj) (12/03/17 16:47) Ed Discharge Order (12/03/17 17:41) Labs Laboratory Tests Test 12/03/17 12:30 12/03/17 12:43 Urine Collection Type CLEAN CATCH Urine Color YELLOW Urine Turbidity CLEAR Urine pH 5.0 Urine Specific [place] 1.025 Urine Protein NEG mg/dL Urine Glucose (UA) NEG mg/dL Urine Ketones TRACE mg/dL Urine Occult Blood TRACE Urine Nitrite NEG Urine Bilirubin NEG Urine Urobilinogen 0.2 MG/DL Urine Leukocyte Esterase NEG Urine WBC 0-2 /hpf Urine Squamous Epithelial Cells 0-5 /hpf Urine Mucus FEW /lpf Urine Collection Time 12:30 White Blood Count 11.4 TH/MM3 Red Blood Count 4.35 MIL/MM3 Hemoglobin 12.6 GM/DL Hematocrit 36.7 % Mean Corpuscular Volume 84.4 FL Mean Corpuscular Hemoglobin 28.8 PG Mean Corpuscular Hemoglobin Concent 34.2 % Red Cell Distribution Width 12.5 % Platelet Count 255 TH/MM3 Mean Platelet Volume 8.6 FL Neutrophils (%) (Auto) 75.5 % Lymphocytes (%) (Auto) 17.3 % Monocytes (%) (Auto) 5.9 % Eosinophils (%) (Auto) 0.8 % Basophils (%) (Auto) 0.5 % Neutrophils # (Auto) 8.5 TH/MM3 Lymphocytes # (Auto) 2.0 TH/MM3 Monocytes # (Auto) 0.7 TH/MM3 Eosinophils # (Auto) 0.1 TH/MM3 Basophils # (Auto) 0.1 TH/MM3 CBC Comment DIFF FINAL Differential Comment Blood Urea Nitrogen 11 MG/DL Creatinine 0.50 MG/DL Random Glucose 77 MG/DL Calcium Level 8.4 MG/DL Sodium Level 139 MEQ/L Potassium Level 3.3 MEQ/L Chloride Level 108 MEQ/L Carbon Dioxide Level 24.9 MEQ/L Anion Gap 6 MEQ/L Estimat Glomerular Filtration Rate 142 ML/MIN [facility] Medical Record Reviewed: Yes Supervised Visit with BERNABE: No Diagnosis Primary Impression: Abdominal or pelvic swelling, mass, or lump, right lower quadrant Referrals: Laura Girard MD Additional Instruction: Follow-up tomorrow with [employer] SUPER[employer]OR. Return for any worsening in pain, fevers, and as needed. Tylenol as needed for pain, Percocet can also be taken if pain is worsening but should be taken with caution while breast-feeding. Med/Other Pt SpecificInfo: Prescription(s) given Scripts Oxycodone-Acetaminophen (Percocet) 5-325 mg Tab 1 TAB PO Q6H Y for PAIN, #10 TAB 0 Refills Prov: Angely Escudero MD 12/03/17 Disposition: DISCHARGE HOME Condition: Stable Angely Escudero MD Dec 03, 2017 17:47
== END 2017-12-03 18:05 | disposition home or self-care (01) ==
LOC: PHED 11:48
DX: R19.03 Right lower quadrant abdominal swelling, mass and lump (principal); F32.9 Major depressive disorder, single episode, unspecified; F17.210 Nicotine dependence, cigarettes, uncomplicated; Z88.8 Allergy status to other drugs, medicaments and biological substances
CPT/HCPCS: 72197; 76830; 76856; 80048; 81001; 85025; 87491; 87591; 99285; A9579; J7030

== ENCOUNTER → 2017-12-21 | Outpatient (CLI) | payer MEDICAID, OTHER ==
[~2017-12-21] MED LIST changes: +PERC5TAB12 PO
[2017-12-21 16:08] LABS: HEMATOCRIT 37.2 % (35.0-46.0); HEMOGLOBIN 12.3 GM/DL (11.6-15.3); MEAN CELL VOLUME 85.3 FL (80.0-100.0); MEAN CORPUSCULAR HEMOGLOBIN 28.1 PG (27.0-34.0); MEAN CORPUSCULAR HGB CONC 32.9 % (32.0-36.0); MEAN PLATELET VOLUME 7.8 FL (7.0-11.0); PLATELET COUNT 313 TH/MM3 (150-450); RED BLOOD COUNT 4.36 MIL/MM3 (4.00-5.30); RED CELL DISTRIBUTION WIDTH 12.6 % (11.6-17.2)
[2017-12-21 16:18] LABS: HEMOGLOBIN A1C 5.2 % (4.3-6.0); INTERNATIONAL NORMALIZED RATIO 1.1 RATIO; PROTHROMBIN TIME - PATIENT 10.7 SEC (9.8-11.6)
[2017-12-21 16:19] LABS: BILIRUBIN, URINE NEG (NEG); BLOOD, URINE SMALL (NEG); GLUCOSE,URINE NEG (NEG); KETONE, URINE NEG (NEG); MUCUS URINE FEW /lpf (OCC); NITRITE,URINE NEG (NEG); PH, URINE 6.5 (5.0-8.5); SQUAMOUS EPITHELIAL CELL URINE 1 /hpf (0-5); URINE COLOR YELLOW (YELLW/STRAW); URINE LEUKOCYTE ESTERASE NEG (NEG)
[2017-12-21 16:43] LABS: ALBUMIN 3.9 GM/DL (3.4-5.0); AST (GOT) 12 U/L (15-37); BICARBONATE 27.5 MEQ/L (21.0-32.0); BLOOD UREA NITROGEN 12 MG/DL (7-18); CALCIUM 8.7 MG/DL (8.5-10.1); CHLORIDE 105 MEQ/L (98-107); CREATININE 0.66 MG/DL (0.50-1.00); GLOMERULAR FILTRATION RATE 103 ML/MIN (>89); GLUCOSE,FASTING 99 MG/DL (74-99); SODIUM (NA) 139 MEQ/L (136-145)
[2017-12-21 16:54] LABS: ALKALINE PHOSPHATASE 96 U/L (45-117); ALT (GPT) 14 U/L (10-53); TOTAL BILIRUBIN ADULT 0.2 MG/DL (0.2-1.0); TOTAL PROTEIN 7.6 GM/DL (6.4-8.2)
== END ==
LOC: CPRE 15:39
PROVIDERS: ATTEND Obstetrics & Gynecology
DX: Z01.812 Encounter for preprocedural laboratory examination (principal); N83.9 Noninflammatory disorder of ovary, fallopian tube and broad ligament, unspecified; N93.9 Abnormal uterine and vaginal bleeding, unspecified; R10.2 Pelvic and perineal pain; N94.5 Secondary dysmenorrhea
CPT/HCPCS: 36415; 80053; 81001; 83036; 84439; 84443; 84703; 85027; 85610

== ENCOUNTER 2017-12-28 05:38 | Day surgery (SDC) | payer MEDICAID, OTHER ==
[~2017-12-28] VITALS: Ht 160 cm; Wt 80.0 kg
[2017-12-28] MEDS ORDERED: METOPROLOL TARTRATE 25 MG TAB PO PRN (06:15)
[2017-12-28] MEDS ORDERED: POVIDONE IODINE 5% (ANTISEPSIS KIT) 4 APPLICATIONS EACH NARE PRN (06:15)
[2017-12-28] MEDS ORDERED: CEFAZOLIN IV SCH (06:15)
[2017-12-28] MEDS ORDERED: NS IV SCH (06:15)
[2017-12-28] MEDS ORDERED: CHLORHEXIDINE GLUCONATE 2 % 1 PACK (2 CLOTHS) TOPICAL PRN (06:15)
[2017-12-28] MEDS ORDERED: LACTATED RINGER'S 1000 ML IV PRN (06:15)
[2017-12-28] MEDS ORDERED: SODIUM CHLORIDE 0.9% 20 ML VIAL ONE (07:19)
[2017-12-28] MEDS ORDERED: BUPIVACAINE/EPINEPHRINE 0.5% PF 30 ML VIAL ONE (07:19)
[2017-12-28] MEDS ORDERED: VASOPRESSIN 20 UNITS/ML VIAL ONE (07:19)
[2017-12-28] MEDS ORDERED: GELFOAM SIZE 100 ONE (07:20)
[2017-12-28] MEDS ORDERED: FAMOTIDINE 20 MG/2 ML VIAL ONE (07:44)
[2017-12-28] MEDS ORDERED: SUGAMMADEX SODIUM 200 MG/2 ML VIAL IV PUSH ONE (08:45)
[2017-12-28] MEDS ORDERED: ACETAMINOPHEN 1000 MG/100 ML 0 ML IV ONE (08:45)
[2017-12-28] MEDS ORDERED: ACETAMINOPHEN 1000 MG/100 ML 100 ML IV ONE (09:54)
[2017-12-28] MEDS ORDERED: HYDROmorphone HCL PF 2 MG/ML VIAL ONE (09:55)
--- NOTE | 2017-12-28 10:14 | HHI.DCPOC ---
Discharge Care Plan Diagnosis: (1) Endometriosis Report Symptoms to Your Doctor -Temperature above 100.5 degrees -Redness, of incision or excessive or foul smelling drainage -Unusual pain or calf pain -Increased vaginal bleeding -Painful or difficulty urinating -Feelings of extreme sadness or anxiety after 2 weeks Goals to Promote Your Health * To prevent worsening of your condition and complications * To maintain your health at the optimal level Directions to Meet Your Goals Take your medications as prescribed Follow your dietary instruction Follow activity as directed Ensure plenty of rest for recovery Drink fluids for hydration Keep your appointments as scheduled Take your immunizations and boosters as scheduled If your symptoms worsen call your PCP, if no PCP go to Urgent Care Center or Emergency Room Smoking is Dangerous to Your Health. Avoid second hand smoke Call the 24-hour crisis hotline for domestic abuse at Laura Girard MD Dec 28, 2017 10:14
[2017-12-28] MEDS ORDERED: DO NOT ADM ANY ANTICOAGULANT DRUGS PRN (10:19)
--- NOTE | 2017-12-28 10:25 | HHI.PR ---
Immediate Post Op Note Procedure Date: Dec 28, 2017 Pre Op Diagnosis: (1) Pelvic pain in female (2) Complex cyst of right ovary (3) Abnormal uterine bleeding (AUB) Post Op Diagnosis: (1) Pelvic adhesive disease (2) Endometriosis (3) Complex cyst of right ovary (4) Pelvic pain in female (5) Abnormal uterine bleeding (AUB) Surgeon: Laura Girard MD Induction Heating Equipment Setter(s): Sherie Gomez MD Procedure: Exam under anesthesia, Laparoscopic right salpingo-oophorectomy, lysis of adhesions, Diagnostic hysteroscopy and dilation and curettage. Findings: 7 cm dilated adnexal mass that was multiloculated encapsulating the the right ovary, the right tube was markedly dilated with endometrioma noted. Dense adhesions to right pelvic side wall, lower uterine segment, and right uterosacral ligament. Tissue hyperemic and very friable. Right uterosacral ligament edematous when compared to left uterosacral ligament. Min filmy adhesions to bowel. Several endometriosis lesions of anterior peritoneum. Adnexal mass had appearance of endometrioma and likely PID. Left tube and ovary wnl Normal liver edge. Appendix and gallbladder not visualized. Complications: None Specimen(s) removed: Right ovary and fallopian tube Estimated blood loss: 200ml Anesthesia: General Drains: None Fluids: 1700ml LR IVF Urinary Output (mLs): 250 Patient to: PACU Patient Condition: Good Laura Girard MD Dec 28, 2017 10:25
[2017-12-28] MEDS ORDERED: MIDAZOLAM HCL 2 MG/2 ML VIAL ONE (10:34)
[2017-12-28] MEDS ORDERED: MORPHINE SULFATE 2 MG/ML INJ ONE (11:39)
[2017-12-28] MEDS ORDERED: ONDANSETRON HCL 4 MG/2 ML VIAL ONE (11:40)
[2017-12-28] MEDS ORDERED: IBUPROFEN 600 MG TAB PO PRN (11:45)
[2017-12-28] MEDS ORDERED: SODIUM CHLORIDE 0.9% FLUSH 10 ML FLUSH IV FLUSH PRN (11:45)
[2017-12-28] MEDS ORDERED: ONDANSETRON HCL 4 MG/2 ML VIAL IV PUSH ONE (12:00)
[2017-12-28] MEDS ORDERED: oxyCODONE/ACETAMINOPHEN 5 MG/325 MG TAB PO PRN ×2 (13:00)
[2017-12-28] MEDS ORDERED: ONDANSETRON HCL 4 MG/2 ML VIAL IVP PRN (13:00)
[2017-12-28] MEDS ORDERED: ONDANSETRON ODT 4 MG TAB PO PRN (13:00)
[2017-12-28] MEDS ORDERED: ZOLPIDEM TARTRATE 5 MG TAB PO PRN (13:00)
[2017-12-28] MEDS ORDERED: diphenhydrAMINE HCL 25 MG CAP PO PRN (13:00)
[2017-12-28] MEDS ORDERED: LACTATED RINGER'S 1000 ML INJ 1,000 ML IV SCH (13:00)
[2017-12-28] MEDS ORDERED: METOCLOPRAMIDE HCL 10 MG/2 ML VIAL ONE (13:24)
[2017-12-28 14:00] VITALS: BP 101/57; PULSE 68; RESP 18; TEMP 97.7; O2SAT 100
[2017-12-28] MEDS ORDERED: IBUPROFEN 800 MG TAB PO PRN (14:00)
[2017-12-28] MEDS ORDERED: METOCLOPRAMIDE HCL 10 MG/2 ML VIAL IV ONE (14:00)
[2017-12-28] MEDS ORDERED: SIMETHICONE 80 MG CHEWABLE TAB PO ONE (14:00)
[2017-12-28] MEDS ORDERED: GLYCOPYRROLATE 1 MG/5 ML SYRINGE IV PUSH ONE (15:34)
[2017-12-28] MEDS ORDERED: DEXAMETHASONE SOD PHOS 4 MG/ML VIAL IV ONE (15:34)
[2017-12-28] MEDS ORDERED: KETOROLAC TROMETHAMINE 30 MG/ML (IVP) VIAL IV PUSH ONE (15:34)
[2017-12-28] MEDS ORDERED: ONDANSETRON HCL 4 MG/2 ML VIAL IV ONE (15:34)
[2017-12-28] MEDS ORDERED: SODIUM CHLORIDE 0.9% 20 ML VIAL IV ONE (15:34)
[2017-12-28] MEDS ORDERED: NEOSTIGMINE 5 MG/5 ML SYRINGE IV PUSH ONE (15:34)
[2017-12-28] MEDS ORDERED: LIDOCAINE HCL 1% PF 5 ML SYRINGE OTHER ONE (15:34)
[2017-12-28] MEDS ORDERED: SODIUM CHLOR 0.9% 1000 ML INJ 1,000 ML IV ONE (15:34)
[2017-12-28] MEDS ORDERED: PROPOFOL 200 MG/20 ML AMP IV ONE (15:34)
[2017-12-28] MEDS ORDERED: ROCURONIUM INJ 50 MG/5 ML SYRINGE IV PUSH ONE (15:34)
[2017-12-28] MEDS ORDERED: SODIUM CHLORIDE 0.9% FLUSH 10 ML FLUSH IV FLUSH SCH (21:00)
--- NOTE | 2017-12-31 18:44 | MP ---
cc: Laura Girard MD DATE OF OPERATION: 12/28/2017 PREOPERATIVE DIAGNOSES: Complex right adnexal mass, pelvic pain, abnormal uterine bleeding. POSTOPERATIVE DIAGNOSES: Complex right adnexal mass, pelvic pain, abnormal uterine bleeding, endometriosis, pelvic adhesive disease. PROCEDURE PERFORMED: Exam under anesthesia, laparoscopic right salpingo-oophorectomy, lysis of adhesions, diagnostic hysteroscopy and D and C. SURGEON: Laura Girard MD BRANNER MACHINE TENDER: Sherie Gomez MD ANESTHESIA: General endotracheal. ESTIMATED BLOOD LOSS: 200 mL INTRAVENOUS FLUID: 1700 mL of lactated Ringer's. URINE OUTPUT: 250 mL of clear yellow urine at the end of the case. PREOPERATIVE ANTIBIOTIC: Ancef 2 gm IV preincision. COMPLICATIONS: None. COUNTS: Correct x 3. DEEP VENOUS THROMBOSIS PROPHYLAXIS: SCDs, bilateral extremities. Specimen: tight tube and ovary, endometrial curettage INTRAOPERATIVE FINDINGS: A large 7 cm right adnexal mass with possible endometrioma of the tube. The ovary was encapsulated in adhesions and covered by the engorged fallopian tube. Adnexal mass was adhesed to the lower uterine segment, right uterosacral ligament and the right side of the pelvic wall. There were filmy adhesions of the bowel to the lower uterine segment. There were endometriosis lesions in the anterior cul-de-sac. On hysteroscopy, normal uterine cavity was noted. PROCEDURE IN DETAIL: After review of informed consent, the patient was taken to the operating room, where general anesthesia was administered without complications. [facility] The abdomen and perineum were prepped and draped in normal sterile fashion. A Bhardwaj was inserted under sterile fashion. Exam under anesthesia was performed. The uterus was approximately 8 cm in length, anteverted. A 5-7 cm mass was felt on the right adnexa. The cervix had a normal contour. A Ctrax uterine manipulator was placed. Gloves were changed. Attention was turned to the [facility]. A 5 mm umbilical fold incision was made with the scalpel after infusion of Marcaine 0.25% with epinephrine. Direct visual entry was made while tenting the abdomen. After abdominal placement was confirmed, the abdomen was insufflated. A right lower quadrant 12 mm port was placed under direct visualization and a 5 mm left port site was placed, and inspection of the abdomen was performed. The liver edge appeared normal. The gallbladder and the appendix were not visualized. The left tube and ovary normal appearance. The uterus did not have any fibroids. Anterior cul-de-sac did have several endometriosis lesions. The right tube was grossly engorged. There were several loculations within this mass and blood filled cysts suggestive of likely endometrioma or prior PID. Mass was densely adhesed to the right pelvic sidewall and the posterior uterus. The adhesions were slowly taken down with blunt dissection and the Harmonic. The tissue was very friable and also appeared necrotic. The mass was first freed from the right sidewall and then the uterosacral ligaments and the posterior aspect of the uterus. Once landmarks were visualized, the infundibulopelvic ligament was desiccated and transected with the Harmonic and this dissection/transecetion was carried out medially towards the cornual region. There was minimal bleeding of the pedicle. This was made hemostatic with a Kleppinger. The filmy adhesions of the bowel to the lower uterine segment were transected and desiccated with the Harmonic. The specimen was placed in an endoscopic pouch. The specimen was slightly too wide to be removed. The right lower quadrant incision was slightly extended with the scalpel. The mass was removed in pieces until small enough to pass though the 12 mm port site. The trocar was then replaced. There were some fragments of the tube still attached to the uterus. These were removed with blunt graspers. All specimens were sent to pathology. Surgicel powder was placed on all pedicles and areas of dissection as the tissue was hyperemic. Good hemostasis was noted. The abdomen was desufflated. All trocars were removed. The 12 mm fascial incision was brought back together with 0 Vicryl on a UR-6 needle. The skin was closed with 3-0 Monocryl on all trocar sites. Attention was then turned towards the hysteroscopy. The speculum was placed in the vagina. Single-tooth tenaculum was placed on anterior lip of the cervix. Uterus was sounded to 8 cm. The cervix was dilated to accommodate a 4 mm hysteroscope. No abnormalities were noted within the uterine cavity. A sharp curettage was performed and sent for pathology. The tenaculum was removed. Good hemostasis was noted. Speculum was removed. The patient was placed in supine position after the Bhardwaj was removed. Anesthesia was reversed without complication. REMARKS: In PACU, patient had significant nausea, was unable to void. The Bhardwaj was reintroduced and observation orders were placed. Subsequently, the patient's nausea and pain improved. Bhardwaj was removed. She was able to void and she was discharged home. MD SOMMER Plummer/SB , 06:15 PM , 06:43 PM [id number]
== END 2017-12-28 15:35 | disposition home or self-care (01) ==
LOC: HSDC 05:38 → HSDI 11:48 → UNDOADMOB 11:48 → HSDC 15:35 → UNDODISOB 15:35
PROVIDERS: ATTEND Obstetrics & Gynecology
DX: N70.11 Chronic salpingitis (principal); R10.2 Pelvic and perineal pain; N80.3 Endometriosis of pelvic peritoneum; N83.291 Other ovarian cyst, right side; N93.9 Abnormal uterine and vaginal bleeding, unspecified; N73.6 Female pelvic peritoneal adhesions (postinfective); K66.0 Peritoneal adhesions (postprocedural) (postinfection); K21.9 Gastro-esophageal reflux disease without esophagitis; F17.200 Nicotine dependence, unspecified, uncomplicated
CPT/HCPCS: 00840; 58558; 58661; 86850; 86900; 86901; 88305; C1765; J0131; J0690; J1100; J1170; J1885; J2250; J2270; J2405; J2710; J2765; J3010; J7030; J7120